=== PATIENT | female | born 1985 | race African-American/Black ===

== ENCOUNTER → 2024-06-18 | Outpatient (CLI) | payer OTHER ==
[2024-06-22 19:57] LABS: QuantiFERON-TB Gold Plus POSITIVE (NEGATIVE)
== END ==
LOC: M LAB 12:36
PROVIDERS: ATTEND Nurse Practitioner Adult Health
DX: Z02.89 Encounter for other administrative examinations (principal)

== ENCOUNTER → 2024-06-24 | Outpatient (REF) | LOC: M RAD 13:07 | PROVIDERS: ATTEND Nurse Practitioner Adult Health | DX: Z01.89 Encounter for other specified special examinations (principal) ==

== ENCOUNTER 2024-07-23 08:06 | Emergency (ER) | payer OTHER ==
[~2024-07-23] VITALS: Ht 170.2 cm; Wt 95.5 kg
[2024-07-23] MEDS ORDERED: NOXI1TAB PO (08:38)
[2024-07-23] MEDS ORDERED: METF500T13 PO (08:38)
[2024-07-23] MEDS ORDERED: ISON1TAB5 (08:38)
[2024-07-23] MEDS ORDERED: RIFA150T (08:38)
[2024-07-23] MEDS ORDERED: TRUL0.5I SC (08:38)
[2024-07-23] MEDS: NAPROXEN 250 MG TAB PO ONE (10:13)
[2024-07-23] MEDS ORDERED: NAPR-837 PO (10:14)
[2024-07-23 10:27] VITALS: BP 127/89; TEMP 98.1; O2SAT 100
== END 2024-07-23 10:29 | disposition home or self-care (01) ==
LOC: M ED 08:06 → EDBD 08:06 → M ED 10:29
DX: S76.011A Strain of muscle, fascia and tendon of right hip, initial encounter (principal); X58.XXXA Exposure to other specified factors, initial encounter; Y92.9 Unspecified place or not applicable; Y93.9 Activity, unspecified; Y99.1 Military activity; Z91.018 Allergy to other foods

== ENCOUNTER → 2024-11-06 | Outpatient (CLI) | payer OTHER ==
[~2024-11-06] MED LIST: ISON1TAB5; ISOVUE-300 61% 100 ML VIAL As Ordered ONE; LIDOCAINE 1% MDV 20 ML VIAL As Ordered ONE; METF500T13 PO; NAPR-837 PO; NOXI1TAB PO; PROHANCE 279.3MG/ML 5ML VIAL As Ordered ONE; RIFA150T; TRUL0.5I SC
== END ==
LOC: M RAD 13:27
DX: M25.551 Pain in right hip (principal); S73.101A Unspecified sprain of right hip, initial encounter; X58.XXXA Exposure to other specified factors, initial encounter; Y92.9 Unspecified place or not applicable
CPT/HCPCS: 27093; 73723; 77002; A9576; Q9967